=== PATIENT | female | born 1995 | race Asian ===

== ENCOUNTER 2017-04-07 21:56 | Emergency (ER) | payer OTHER ==
[2017-04-07 22:25] VITALS: TEMP 98; BMI 29.2
[2017-04-08] MEDS ORDERED: TETRACAINE 0.5% OPHTH SOLN 2 ML BOTTLE ONE (00:54)
[2017-04-08] MEDS ORDERED: ACETAMINOPHEN 325 MG TABLET (FP) PO ONE (01:30)
[2017-04-08] MEDS ORDERED: SODIUM CHLORIDE 0.9% 1000 ML INFUS.BAG IV ONE (01:40)
[2017-04-08] MEDS ORDERED: METOCLOPRAMIDE HCL INJECTION 10 MG/2 ML VIAL IVPB ONE (01:40)
[2017-04-08] MEDS ORDERED: KETOROLAC TROMETHAMINE 30 MG/1 ML VIAL IVPUSH ONE (01:40)
--- NOTE | 2017-04-08 02:27 | PDOC ---
History of Present Illness - General Chief Complaint: Eye Problem Stated Complaint: EYE PROBLEM Time Seen by Provider: 04/08/17 00:25 - History of Present Illness Initial Comments: 04/08/17 02:09 CHIEF COMPLAINT: HISTORY OF PRESENT ILLNESS: 21 yo F with hx of asthma presents to ED with eye irritation and headache. Patient states she was given antibiotic eye drops by a primary care doctor "but it was supposed to make this go away in 4 days, but I 've been using it for 8 and it's still really painful and now I have a horrible headache." Patient denies any change in vision, LOC, fever, chills, vomiting or diarrhea. PAST MEDICAL HISTORY: Denies past medical history FAMILY HISTORY: Denies SOCIAL HISTORY: Denies tobacco, alcohol, illicit drug use. SURGICAL HISTORY: Denies ALLERGIES: No known drug allergies REVIEW OF SYSTEMS General/Constitutional: Denies fever or chills. Denies weakness. HEENT: Denies change in vision. Denies ear pain or discharge. Denies sore throat. Cardiovascular: Denies chest pain or shortness of breath. Respiratory: Denies cough, wheezing, or hemoptysis. Gastrointestinal: Denies nausea, vomiting, diarrhea or constipation. Denies rectal bleeding. Genitourinary: Denies dysuria, frequency, or change in urination. Musculoskeletal: Denies joint or muscle swelling or pain. Denies neck or back pain. Skin and breasts: Denies rash or easy bruising. Neurologic: Denies headache, vertigo, loss of consciousness, or loss of sensation. PHYSICAL EXAM General Appearance: Well-appearing, appropriately dressed. No apparent distress , no intoxication. HEENT: EOMI, PERRLA, normal ENT inspection, normal voice, TMs normal, pharynx normal. No conjunctival pallor. No photophobia, scleral icterus. Neck: Supple. Trachea midline. No tenderness, rigidity, carotid bruit, stridor , lymphadenopathy, or thyromegaly. Respiratory/Chest: Lungs CTAB. No shortness of breath, chest tenderness, respiratory distress, accessory muscle use. No crackles, rales, rhonchi, stridor , wheezing, dullness Cardiovascular: RRR. S1, S2. No JVD, murmur, bradycardia, tachycardia. Vascular Pulses: Dorsalis-Pedis (R): 2+, Dorsalis-Pedis (L): 2+ Gastrointestinal/Abdominal: Normal bowel sounds. Abdomen soft, non-distended. No tenderness or rebound tenderness. No organomegaly, pulsatile mass, guarding , hernia, hepatomegaly, splenomegaly. Lymphatic: No adenopathy, tenderness. Musculoskeletal/Extremities: Normal inspection. FROM of all extremities, normal capillary refill. Pelvis Stable. No CVA tenderness. No tenderness to extremities, pedal edema, swelling, erythema or deformity. Integumentary: Appropriate color, dry, warm. No cyanosis, erythema, jaundice or rash Neurologic: bank worker II-XII intact. Fully oriented, alert. Appropriate mood/affect. Motor strength 5/5. No appreciable EOM palsy, facial droop or sensory deficit. Past History - Past Medical History Allergies/Adverse Reactions: Allergies Allergy/AdvReac Type Severity Reaction Status Date / Time No Known Allergies Allergy Verified 04/08/17 02:12 Home Medications: Ambulatory Orders Erythromycin 0.5% Eye Ointment [Erythromycin 0.5% Eye Ointment -] 1 applic OD QID #1 tube 04/08/17 Thyroid Disease: Yes - Psycho/Social/Smoking Cessation Hx Suicidal Ideation: No Smoking History: Never smoked Information on smoking cessation initiated: No Hx Alcohol Use: No Drug/Substance Use Hx: No *Physical Exam - Vital Signs Last Vital Signs Temp Pulse Resp BP Pulse Ox 98 F 78 18 119/71 100 04/07/17 22:21 04/07/17 22:21 04/07/17 22:21 04/07/17 22:21 04/07/17 22:21 ED Treatment Course - RADIOLOGY Radiology Studies Ordered: Category Date Time Status HEAD CT WITHOUT CONTRAST [CT] Stat CT Scan 04/08/17 01:30 Ordered *DC/Admit/Observation/Transfer Diagnosis at time of Disposition: Headache Qualifiers: Headache type: unspecified Headache chronicity pattern: acute headache Intractability: not intractable Qualified Code(s): R51 - Headache Conjunctivitis Qualifiers: Conjunctivitis type: acute Acute conjunctivitis type: unspecified Laterality: right Qualified Code(s): H10.31 - Unspecified acute conjunctivitis, right eye - Discharge Dispostion Disposition: HOME Condition at time of disposition: Improved Admit: No - Prescriptions Prescriptions: Erythromycin 0.5% Eye Ointment [Erythromycin 0.5% Eye Ointment -] 1 applic OD QID #1 tube - Referrals Referrals: Hector Campos MD [Staff Physician] - Lukas Anguiano MD [Staff Physician] - - Patient Instructions Printed Discharge Instructions: DI for Headache, DI for Conjunctivitis Additional Instructions: As discussed, please follow up with the box brander within the next 48 hours. If your headache returns, please see a neurologist for further evaluation. If you experience sudden, sharp, severe headache, or a "thunderclap "-like headache, or you develop any change in vision, difficulty walking/ speaking/swallowing, weakness, or any new or worsening symptoms, please return to the ER.
--- NOTE | 2017-04-08 02:41 | PDOC ---
*Physical Exam - Vital Signs Last Vital Signs Temp Pulse Resp BP Pulse Ox 98 F 78 18 119/71 100 04/07/17 22:21 04/07/17 22:21 04/07/17 22:21 04/07/17 22:21 04/07/17 22:21 ED Treatment Course - Medications Given in the ED: ED Medications Discontinued Medications Generic Name Dose Route Start Last Admin Trade Name Iris PRN Reason Stop Dose Admin Acetaminophen 975 mg 04/08/17 01:30 04/08/17 02:37 Tylenol - PO 04/08/17 01:31 Not Given ONCE ONE Medical Decision Making - Medical Decision Making 04/08/17 02:40 agree with care from CASSIE Montelongo *DC/Admit/Observation/Transfer Diagnosis at time of Disposition: Headache, Conjunctivitis - Discharge Dispostion Disposition: HOME Condition at time of disposition: Improved - Prescriptions Prescriptions: Erythromycin 0.5% Eye Ointment [Erythromycin 0.5% Eye Ointment -] 1 applic OD QID #1 tube - Referrals Referrals: Lukas Anguiano MD [Staff Physician] - Hector Campos MD [Staff Physician] - - Patient Instructions Printed Discharge Instructions: DI for Conjunctivitis, DI for Headache Additional Instructions: As discussed, please follow up with the funeral limousine driver within the next 48 hours. If your headache returns, please see a neurologist for further evaluation. If you experience sudden, sharp, severe headache, or a "thunderclap "-like headache, or you develop any change in vision, difficulty walking/ speaking/swallowing, weakness, or any new or worsening symptoms, please return to the ER.
[2017-04-08 03:36] VITALS: BP 106/70; PULSE 73
== END 2017-04-08 03:36 | disposition home or self-care (01) ==
LOC: JER 21:56 → JERFT 21:56 → JER 04-08 03:36
PROC: 3E0333Z Introduction of Anti-inflammatory into Peripheral Vein, Percutaneous Approach (ICD-10-PCS; principal; 2017-04-07)
PROC: 3E033GC Introduction of Other Therapeutic Substance into Peripheral Vein, Percutaneous Approach (ICD-10-PCS; 2017-04-07)
PROC: 3E033GC Introduction of Other Therapeutic Substance into Peripheral Vein, Percutaneous Approach (ICD-10-PCS; 2017-04-07)
DX: R51 Headache (principal); H10.31 Unspecified acute conjunctivitis, right eye
CPT/HCPCS: 84703; 99282-25